=== PATIENT | male | born 1970 | race American Indian/Alaskan Native ===

== ENCOUNTER 2016-06-27 11:13 | Emergency (ER) | payer MEDICAID ==
[2016-06-27] MEDS ORDERED: KEPPRA 1,000 MG/NS 0.75% 100ML 100 ML IV ONE ×2 (11:57→12:02)
[2016-06-27 12:58] LABS: Basophils % (Auto) 0.5 % (0.0-1.8); Eosinophils % (Auto) 0.4 % (0.0-4.3); Hemoglobin 11.9 gm/dl (11.8-15.2); Mean Corpuscular HGB Conc 31 % (32-34); Mean Corpuscular Volume 80 fl (84-94); Platelet Count 118 K/mm3 (140-440); Red Blood Count 4.74 M/mm3 (3.65-5.03); Red Cell Distribution Width 14.9 % (13.2-15.2); White Blood Count 7.4 K/mm3 (4.5-11.0)
[2016-06-27 13:01] LABS: Mean Corpuscular Hemoglobin 25 pg (28-32)
[2016-06-27 13:18] LABS: Anion Gap 19 mmol/L; BUN/Creatinine Ratio 18.33; Blood Urea Nitrogen 22 mg/dL (9-20); Calcium 8.4 mg/dL (8.4-10.2); Carbon Dioxide 21 mmol/L (22-30); Glucose 90 mg/dL (75-100); Sodium 142 mmol/L (137-145)
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
[2016-06-27 14:48] VITALS: BP 110/74
== END 2016-06-27 14:48 | disposition home or self-care (01) ==
LOC: ED 11:13
DX: G40.909 Epilepsy, unspecified, not intractable, without status epilepticus (principal); I10 Essential (primary) hypertension; Z79.82 Long term (current) use of aspirin
CPT/HCPCS: 36415; 80048; 83735; 85025; 96374; 99284; J1953

== ENCOUNTER 2016-11-20 14:13 | Emergency (ER) | payer MEDICAID ==
[2016-11-20] MEDS ORDERED: ATIVAN IV ONE (14:52)
--- NOTE | 2016-11-20 14:53 | Emergency Department Report ---
Stated Complaint: SEIZURE Time Seen by Provider: 11/20/16 14:48 - HPI History of Present Illness: She is a 46-year-old male with a history of seizure on medication presents to ED after seizure episode. Patient was transported by a trans driver examiner who states he was going to his doctor's appointment when he had a seizure and returned to come to the ER. Patient denies any fevers/chills/nausea/vomiting/dizziness/blurry vision/chest pain/shortness of breath - ROS Review of Systems: As noted in HPI - Exam Physical Exam: GENERAL: Alert and oriented x3, no apparent distress, Normal Gait, atraumatic. HEAD: Head is normocephalic and a-traumatic. EYES: Pupils are equal, round, and reactive to light and accommodation. NEUROLOGIC: The patient is cooperative with no focal neurologic deficits. Cranial nerves II through XII are grossly intact. Normal speech. . Normal sensation in bilateral upper extremities, No loss of sensation, No facial droop, . MSE screening note: Focused history and physical exam performed. Due to findings the following was ordered: ED Medical Decision Making - Medical Decision Making Seizure protocol ordered. is in no distress. Discussed with nurse to have discharge and is getting a room for patient to be seen by ED physician ED Disposition for MSE Condition: Stable
[2016-11-20] MEDS ORDERED: NACL 0.9% 1000 ML 1,000 ML IV ONE (17:08)
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
[2016-11-20] MEDS ORDERED: KEPPRA PO ONE (17:44)
[2016-11-20 17:46] LABS: Alanine Aminotransferase 8 units/L (7-56); Albumin 3.6 g/dL (3.9-5); Albumin/Globulin Ratio 1.2 %; Alkaline Phosphatase 49 units/L (35-129); Anion Gap 13 mmol/L; Bilirubin,Total < 0.20 mg/dL (0.1-1.2); Blood Urea Nitrogen 22 mg/dL (9-20); Calcium 8.2 mg/dL (8.4-10.2); Carbon Dioxide 23 mmol/L (22-30); Glucose 98 mg/dL (75-100); Potassium 4.2 mmol/L (3.6-5.0); Sodium 141 mmol/L (137-145); Total Protein 6.7 g/dL (6.3-8.2)
[2016-11-20] MEDS ORDERED: TOPAMAX PO ONE (17:50)
--- NOTE | 2016-11-20 17:55 | Cat Scan Report ---
FINAL REPORT PROCEDURE: CT HEAD/BRAIN WO CON TECHNIQUE: Computerized tomography of the head was performed without contrast material. HISTORY: Altered mental status. COMPARISON: No prior studies are available for comparison. FINDINGS: Skull and scalp: Normal. Paranasal sinuses: Normal. Ventricles and subarachnoid spaces: Normal. Cerebrum: No evidence of hemorrhage, acute infarction or mass. Subtle basal ganglia calcifications. Small 3 millimeter areas of low attenuation in the basal ganglia. Cerebellum and brainstem: No evidence of hemorrhage, acute infarction or mass. Vasculature: Normal. Comments: None. IMPRESSION: No CT evidence of acute intracranial pathology. Small areas of low attenuation in the basal ganglia, likely prominent perivascular spaces or lacunes. Consider MRI of the brain for further characterization if there is continued clinical concern and patient has no contraindication to MRI.
--- NOTE | 2016-11-20 17:56 | Admit Criteria Form ---
Admission Criteria Documentation: SEIZURE Clinical Indications for Admission to Inpatient Care (Place 'X' for any and all applicable criteria): Admission is indicated for seizure and ANY ONE of the following(1)(2)(3)(4)(5): [ X]I. Inpatient admission required rather than observation care (Also use Seizure: Observation Care Criteria as appropriate) because of ANY ONE of the following: [ ]a) Altered mental status that is severe or persistent [ ]b) New focal neurologic deficit that is severe or persistent [ ]c) Metabolic disorder (eg, hypoglycemia, hyponatremia) that is severe or persistent [ X]d) Recurrent seizure [ ]e) Outpatient antiseizure regimen cannot be established (eg , patient cannot tolerate medication, initiation requires inpatient care) [ ]f) Need for ongoing intravenous infusion of antiseizure medication [ ]g) Cardiac arrhythmias of immediate concern [ ]h) Cerebral bleeding, hydrocephalus, or vasospasm monitoring (14) [ ]i) Increased intracranial pressure or cerebral edema monitoring (15) [ ]j) Other treatment or monitoring requiring inpatient admission [ ]II. Status epilepticus [A] or repetitive seizures not controlled with emergent treatment (6)(8) [ ]III. Brain disorder (eg, tumor, edema, and hydrocephalus) that requiring monitoring or intervention available only at inpatient level of care. [ ]IV. Brain insult (eg, severe trauma, stroke, drug toxicity, or withdrawal) that requires monitoring or intervention available only at inpatient level of care (10)(11) Extended stay beyond goal length of stay may be needed for (22) [ ]a) Complications of status epilepticus [ ]b) Refractory status epilepticus [ ]c) Etiology-specific therapy for conditions such as ALUMINUM POL[employer]ER infection, head injury,eclampsia, severe metabolic abnormalities, and brain tumor [ ]d) Residual neurologic damage, [ ]e) Initiation of significant change to anticonvulsant treatment [ ]f) Older patients (65 years or older) [ ]g) Patient requiring intubation (eg, to protect airway) The original [facility] content created by [employer] has been revised. The portions of the content which have been revised are identified through the use of italic text or in bold, and [facility] [employer] has neither reviewed nor approved the modified material. All other unmodified content is copyright [facility] [employer]. Please see references footnoted in the original [facility] edition 2016 Admission Criteria Met: Yes
[2016-11-20] MEDS ORDERED: VIMPAT PO ONE (18:07)
[2016-11-20] MEDS ORDERED: TRILEPTAL PO ONE (19:00)
[2016-11-20 19:36] LABS: Urine Drugs of Abuse Note Disclamer
[2016-11-20 19:53] LABS: Bilirubin,Urine NEG (Negative); Blood,Urine NEG (Negative); Ketones,Urine NEG (Negative); Leukocyte Esterase,Urine NEG (Negative); Nitrite,Urine NEG (Negative); Protein,Urine <15 mg/dL mg/dL (Negative); Urobilinogen,Urine < 2.0 mg/dL (<2.0)
[2016-11-20 19:58] LABS: RBC,Urine < 1.0 /HPF (0.0-6.0)
[2016-11-20 20:02] VITALS: BP 112/74
== END 2016-11-20 20:45 | disposition home or self-care (01) ==
LOC: ED 14:13
DX: R56.9 Unspecified convulsions (principal); I10 Essential (primary) hypertension; I25.10 Atherosclerotic heart disease of native coronary artery without angina pectoris; F12.10 Cannabis abuse, uncomplicated; Z87.891 Personal history of nicotine dependence; Z79.82 Long term (current) use of aspirin
CPT/HCPCS: 36415; 70450; 80053; 80307; 81001; 82962; 93005; 93010; 96360; 99285; J7030

== ENCOUNTER 2016-12-13 13:13 | Emergency (ER) | payer MEDICAID | END 2016-12-13 13:50 | disposition left against medical advice (07) | LOC: ED 13:13 | DX: R41.82 Altered mental status, unspecified (principal); Z53.21 Procedure and treatment not carried out due to patient leaving prior to being seen by health care provider ==